=== PATIENT | female | born 1965 | race Caucasian/White ===

== ENCOUNTER 2016-12-01 17:03 | Inpatient (IN) | payer MEDICAID ==
[~2016-12-01] VITALS: Ht 165.1 cm; Wt 72.6 kg
[2016-12-01] MEDS ORDERED: ALBU8HFA IH (17:05)
[2016-12-01] MEDS ORDERED: IPRATROPIUM BROMIDE 0.5 MG/2.5 ML NEB SOLUTION NEB ONE ×3 (17:15→20:45)
[2016-12-01] MEDS ORDERED: ALBUTEROL SULFATE 5 MG/ML 20 ML NEB SOLN [BULK] NEB ONE ×3 (17:15→20:45)
[2016-12-01] MEDS ORDERED: 0.9% SODIUM CHLORIDE 15 ML NEB SOLUTION NEB ONE ×2 (17:19→20:47)
[2016-12-01] MEDS ORDERED: PredniSONE 20 MG TABLET PO ONE (17:30)
[2016-12-01] MEDS ORDERED: IBUPROFEN 600 MG TABLET PO ONE (20:45)
[2016-12-01] MEDS ORDERED: ACETAMINOPHEN 325 MG TABLET PO ONE (20:45)
[2016-12-01] MEDS ORDERED: ACETAMINOPHEN 325 MG TABLET PO PRN (21:30)
[2016-12-01] MEDS ORDERED: ONDANSETRON HCL 4 MG/2 ML VIAL IVP PRN (21:30)
[2016-12-01 21:41] LABS: BASOPHILS # (AUTO) 0.01 K/uL (0.00-0.20); BASOPHILS % (AUTO) 0.1 % (0.0-2.0); EOSINOPHILS # (AUTO) 0.01 K/uL (0.00-0.70); EOSINOPHILS % (AUTO) 0.05 % (1.0-6.0); HEMOGLOBIN 13.7 g/dL (12.0-16.0); LYMPHOCYTES # (AUTO) 1.1 K/uL (1.0-4.8); LYMPHOCYTES % (AUTO) 8.1 % (22.0-44.0); MEAN CORPUSCULAR HGB CONC 31.9 G/dL (31.0-37.0); MEAN CORPUSCULAR VOLUME 78 fL (80-100); MONOCYTES # (AUTO) 0.2 K/uL (0.1-1.0); MONOCYTES % (AUTO) 1.4 % (2.0-9.0); NEUTROPHILS # (AUTO) 12.5 K/uL (1.8-7.7); PLATELET COUNT (AUTO) 363 K/uL (150-450); RED CELL DISTRIBUTION WIDTH 14.6 % (11.5-14.5); WHITE BLOOD COUNT (AUTO) 13.8 K/uL (4.5-11.0)
[2016-12-01 21:54] LABS: NEUTROPHILS % (AUTO) 90.4 % (40.0-70.0)
[2016-12-01 21:55] LABS: ANION GAP 11 mmol/L (8-16); CALCIUM, TOTAL 8.8 mg/dL (8.8-10.5); CARBON DIOXIDE 26 mmol/L (22-29); CHLORIDE 104 mmol/L (98-107); CREATININE 0.66 mg/dL (0.60-1.30); GLOMERULAR FILTR. RATE CALC > 60 mL/min (>60); POTASSIUM 3.7 mmol/L (3.5-5.1); SODIUM SERUM 141 mmol/L (136-145); UREA NITROGEN, BLOOD 25 mg/dL (7-18)
[2016-12-01] MEDS ORDERED: MAGNESIUM HYDROXIDE SUSPENSION 30 ML UDCUP PO PRN (22:00)
[2016-12-01 22:04] LABS: ALANINE AMINOTRANSFERASE 33 U/L (12-78); ALBUMIN 3.3 g/dL (3.4-5.0); ASPARTATE AMINOTRANSFERASE 14 U/L (15-37); BILIRUBIN,TOTAL 0.2 mg/dL (0.1-1.0); TOTAL PROTEIN, SERUM 7.8 g/dL (6.4-8.2)
[2016-12-01 22:40] VITALS: BP 115/57
[2016-12-01] MEDS ORDERED: IPRATROPIUM BROMIDE 0.5 MG/2.5 ML NEB SOLUTION NEB SCH (23:00)
[2016-12-01] MEDS: ALBUTEROL SULFATE 2.5 MG/0.5 ML NEB SOLUTION NEB SCH (23:00)
[2016-12-01] MEDS ORDERED: 0.9% SODIUM CHLORIDE 5 ML NEB SOLUTION NEB ONE (23:51)
[2016-12-02] MEDS: ALBUTEROL SULFATE 2.5 MG/0.5 ML NEB SOLUTION NEB SCH ×2 (00:29→00:52)
[2016-12-02] MEDS ORDERED: SODIUM CHLORIDE 0.9% 500 ML IV ONE (00:36)
[2016-12-02] MEDS: MethylPREDNISolone SOD SUCC 40 MG/ML VIAL IVP SCH ×4 (00:47→17:02)
[2016-12-02] MEDS: HEPARIN SODIUM,PORCINE 5,000 UNITS/ML VIAL SQ SCH ×2 (00:47→08:00)
[2016-12-02] MEDS: AZITHROMYCIN 500 MG/NS 250 ML IV SCH (00:48)
[2016-12-02 05:12] VITALS: BP 106/60
[2016-12-02 08:16] VITALS: BP 116/74
[2016-12-02] MEDS: DOCUSATE SODIUM 100 MG CAPSULE PO SCH ×2 (08:51→20:20)
[2016-12-02] MEDS: PANTOPRAZOLE SODIUM 40 MG DR TABLET PO SCH (08:51)
[2016-12-02] MEDS: ACETAMINOPHEN 325 MG TABLET PO PRN ×2 (11:38→20:20)
[2016-12-02 11:44] VITALS: BP 104/57
[2016-12-02 15:46] VITALS: BP 136/76
[2016-12-02] MEDS: ALBUTEROL SULFATE 2.5 MG/0.5 ML NEB SOLUTION NEB PRN (19:50)
[2016-12-02] MEDS: IPRATROPIUM BROMIDE 0.5 MG/2.5 ML NEB SOLUTION NEB PRN (19:50)
[2016-12-02 20:19] VITALS: BP 124/73
[2016-12-03] VITALS (8 sets, daily range): BP systolic 93–132; BP diastolic 57–93
[2016-12-03] MEDS: MethylPREDNISolone SOD SUCC 40 MG/ML VIAL IVP SCH ×5 (00:03→23:47)
[2016-12-03 06:49] LABS: EOSINOPHILS % (AUTO) 0 % (1.0-6.0); HEMATOCRIT 39.8 % (36-46); HEMOGLOBIN 12.6 g/dL (12.0-16.0); LYMPHOCYTES # (AUTO) 1.2 K/uL (1.0-4.8); LYMPHOCYTES % (AUTO) 4.3 % (22.0-44.0); MEAN CORPUSCULAR HEMOGLOBIN 24.8 pg (26.0-34.0); MEAN CORPUSCULAR HGB CONC 31.8 G/dL (31.0-37.0); MEAN CORPUSCULAR VOLUME 78 fL (80-100); MONOCYTES # (AUTO) 0.4 K/uL (0.1-1.0); MONOCYTES % (AUTO) 1.6 % (2.0-9.0); NEUTROPHILS # (AUTO) 25.5 K/uL (1.8-7.7); PLATELET COUNT (AUTO) 394 K/uL (150-450); RED CELL DISTRIBUTION WIDTH 14.6 % (11.5-14.5); WHITE BLOOD COUNT (AUTO) 27.1 K/uL (4.5-11.0)
[2016-12-03 07:02] LABS: NEUTROPHILS % (AUTO) 94.1 % (40.0-70.0); RBC MORPHOLOGY COMMENT ABNORMAL RBC MORPH
[2016-12-03 07:14] LABS: ANION GAP 10 mmol/L (8-16); CALCIUM, TOTAL 8.7 mg/dL (8.8-10.5); CARBON DIOXIDE 25 mmol/L (22-29); CHLORIDE 106 mmol/L (98-107); CREATININE 0.56 mg/dL (0.60-1.30); GLOMERULAR FILTR. RATE CALC > 60 mL/min (>60); SODIUM SERUM 141 mmol/L (136-145); UREA NITROGEN, BLOOD 23 mg/dL (7-18)
[2016-12-03] MEDS: DOCUSATE SODIUM 100 MG CAPSULE PO SCH ×2 (08:32→20:54)
[2016-12-03] MEDS: PANTOPRAZOLE SODIUM 40 MG DR TABLET PO SCH (08:32)
[2016-12-03] MEDS: ACETAMINOPHEN 325 MG TABLET PO PRN ×2 (14:32→20:56)
[2016-12-03] MEDS ORDERED: 0.9% SODIUM CHLORIDE 10 ML SYRINGE IVP PRN (16:15)
[2016-12-03] MEDS: AZITHROMYCIN 500 MG/NS 250 ML IV SCH ×2 (23:48)
[2016-12-04 04:55] VITALS: BP 126/79
[2016-12-04] MEDS: MethylPREDNISolone SOD SUCC 40 MG/ML VIAL IVP SCH (06:29)
[2016-12-04] MEDS: ALBUTEROL SULFATE 2.5 MG/0.5 ML NEB SOLUTION NEB PRN ×4 (06:47→17:20)
[2016-12-04] MEDS: IPRATROPIUM BROMIDE 0.5 MG/2.5 ML NEB SOLUTION NEB PRN ×4 (06:47→17:20)
[2016-12-04 07:54] VITALS: BP 134/68
[2016-12-04] MEDS: DOCUSATE SODIUM 100 MG CAPSULE PO SCH ×2 (09:17→20:28)
[2016-12-04] MEDS: PredniSONE 20 MG TABLET PO SCH (09:18)
[2016-12-04] MEDS: PANTOPRAZOLE SODIUM 40 MG DR TABLET PO SCH (09:18)
[2016-12-04] MEDS: MONTELUKAST SODIUM 10 MG TABLET PO SCH (09:18)
[2016-12-04] MEDS: ACETAMINOPHEN 325 MG TABLET PO PRN ×3 (11:40→20:26)
[2016-12-04 12:29] VITALS: BP 117/78
[2016-12-04 15:44] VITALS: BP 136/71
[2016-12-04 20:03] VITALS: BP 115/67
[2016-12-04 23:15] VITALS: BP 115/63
[2016-12-04] MEDS: AZITHROMYCIN 500 MG/NS 250 ML IV SCH (23:27)
[2016-12-05 04:33] VITALS: BP 119/56
[2016-12-05 07:22] VITALS: BP 132/76
[2016-12-05] MEDS: ALBUTEROL SULFATE 2.5 MG/0.5 ML NEB SOLUTION NEB PRN ×2 (07:25→17:49)
[2016-12-05] MEDS: IPRATROPIUM BROMIDE 0.5 MG/2.5 ML NEB SOLUTION NEB PRN ×2 (07:25→17:49)
[2016-12-05] MEDS: MONTELUKAST SODIUM 10 MG TABLET PO SCH (08:16)
[2016-12-05] MEDS: PANTOPRAZOLE SODIUM 40 MG DR TABLET PO SCH (08:16)
[2016-12-05] MEDS: PredniSONE 20 MG TABLET PO SCH (08:17)
[2016-12-05] MEDS: DOCUSATE SODIUM 100 MG CAPSULE PO SCH ×2 (08:19→19:54)
[2016-12-05] MEDS: BENZONATATE 100 MG CAPSULE PO SCH ×2 (10:22→19:52)
[2016-12-05] MEDS: LORazepam 1 MG TABLET PO PRN ×2 (11:00→18:09)
[2016-12-05 12:09] VITALS: BP 128/50
[2016-12-05 15:25] VITALS: BP 123/66
[2016-12-05] MEDS: AZITHROMYCIN 500 MG/NS 250 ML IV SCH (23:34)
[2016-12-06 00:14] VITALS: BP 100/61
[2016-12-06 04:56] VITALS: BP 132/79
[2016-12-06] MEDS: PANTOPRAZOLE SODIUM 40 MG DR TABLET PO SCH (08:07)
[2016-12-06] MEDS: PredniSONE 20 MG TABLET PO SCH (08:07)
[2016-12-06] MEDS: MONTELUKAST SODIUM 10 MG TABLET PO SCH (08:07)
[2016-12-06] MEDS: DOCUSATE SODIUM 100 MG CAPSULE PO SCH (08:07)
[2016-12-06] MEDS: LORazepam 1 MG TABLET PO PRN (08:09)
[2016-12-06] MEDS: BENZONATATE 100 MG CAPSULE PO SCH (08:10)
[2016-12-06 08:11] VITALS: BP 115/69
[2016-12-06] MEDS ORDERED: ALBU8HFA IH (11:27)
[2016-12-06] MEDS ORDERED: MONT10TA21 PO (11:28)
[2016-12-06] MEDS ORDERED: ADV250 IH (11:28)
[2016-12-06] MEDS ORDERED: PRED10 PO (11:29)
[2016-12-06] MEDS ORDERED: LORA1TAB3 PO (11:38)
[2016-12-06 11:41] VITALS: BP 126/75
== END 2016-12-06 12:42 | disposition home or self-care (01) | DRG 141 ==
LOC: EMS 17:05 → 6N 21:32
PROVIDERS: ADMIT Internal Medicine; ATTEND Internal Medicine
DX: J45.901 Unspecified asthma with (acute) exacerbation (principal); F41.1 Generalized anxiety disorder; J20.9 Acute bronchitis, unspecified; Z79.51 Long term (current) use of inhaled steroids
CPT/HCPCS: 93005; 94640; 94644; 99285; J0456; J1644; J2920; J7040

== ENCOUNTER 2018-04-24 13:38 | Emergency (ER) | payer MEDICAID, OTHER ==
[~2018-04-24] VITALS: Ht 165.1 cm; Wt 72.7 kg
[~2018-04-24 13:38] MED LIST: ADV250 IH; ALBU8HFA IH; LORA1TAB3 PO; MONT10TA21 PO; PRED10 PO
[2018-04-24 14:45] VITALS: BP 122/78
[2018-04-24] MEDS ORDERED: ALBUTEROL SULFATE 2.5 MG/0.5 ML NEB SOLUTION NEB ONE (14:45)
[2018-04-24] MEDS ORDERED: IPRATROPIUM BROMIDE 0.5 MG/2.5 ML NEB SOLUTION NEB ONE (14:45)
[2018-04-24] MEDS ORDERED: 0.9% SODIUM CHLORIDE 5 ML NEB SOLUTION NEB ONE (14:55)
[2018-04-24 15:26] LABS: APPEARANCE,URINE CLOUDY (CLEAR); BILIRUBIN,URINE NEGATIVE (NEGATIVE); GLUCOSE, URINE (UA) NEGATIVE (NEGATIVE); KETONES,URINE NEGATIVE (NEGATIVE); LEUKOCYTE ESTERASE ,URINE NEGATIVE (NEGATIVE); NITRATE,URINE POSITIVE (NEGATIVE); OCCULT BLOOD,URINE MODERATE (NEGATIVE); PH,URINE 5.5 (5.0-8.0); PROTEIN,URINE NEGATIVE (NEGATIVE); UROBILINOGEN,URINE 0.2 mg/dL (<=1.0)
[2018-04-24 15:35] LABS: BACTERIA,URINE Many /HPF (None Seen)
[2018-04-24 15:36] LABS: SQUAMOUS EPITHELIAL CELL,UR Moderate /LPF (None Seen); WBC,URINE 0-2 /HPF (0-5)
== END 2018-04-24 15:59 | disposition home or self-care (01) ==
LOC: EMS 13:40
DX: J20.9 Acute bronchitis, unspecified (principal); J45.909 Unspecified asthma, uncomplicated; J02.9 Acute pharyngitis, unspecified; F17.210 Nicotine dependence, cigarettes, uncomplicated
CPT/HCPCS: 81001; 87077; 87086; 87186; 94640; 99284; J7613

== ENCOUNTER 2019-04-15 14:39 | Emergency (ER) | payer OTHER ==
[~2019-04-15] VITALS: Ht 165.1 cm; Wt 77.3 kg
[2019-04-15 17:45] VITALS: BP 120/70
== END 2019-04-15 18:30 | disposition left against medical advice (07) ==
LOC: EMS 14:43
DX: M79.605 Pain in left leg (principal); Z53.21 Procedure and treatment not carried out due to patient leaving prior to being seen by health care provider

== ENCOUNTER 2022-02-11 11:06 | Emergency (ER) | payer OTHER ==
[~2022-02-11] VITALS: Ht 165.1 cm; Wt 81.8 kg
[~2022-02-11 11:06] MED LIST changes: -ADV250 IH; +FLUT1DIS6 IH; +LORA-1000 PO; -LORA1TAB3 PO; -MONT10TA21 PO; -PRED10 PO
[2022-02-11 11:41] VITALS: BP 141/77
[2022-02-11] MEDS ORDERED: ALBUTEROL SULFATE 2.5 MG/0.5 ML NEB SOLUTION NEB ONE (11:45)
[2022-02-11] MEDS ORDERED: IPRATROPIUM BROMIDE 0.5 MG/2.5 ML NEB SOLUTION NEB ONE (11:45)
[2022-02-11] MEDS ORDERED: PredniSONE 20 MG TABLET PO ONE (11:45)
[2022-02-11 12:15] LABS: COVID AG,FIA SOURCE NASOPHARYNGEAL
[2022-02-11] MEDS ORDERED: PRED-554 PO ×2 (12:27→12:28)
[2022-02-11 12:42] LABS: INFLUENZA TYPE A NEGATIVE FOR TYPE A (NEGATIVE); INFLUENZA TYPE B NEGATIVE FOR TYPE B (NEGATIVE)
== END 2022-02-11 12:37 | disposition home or self-care (01) ==
LOC: EMS 11:06
DX: U07.1 COVID-19 (principal); J45.909 Unspecified asthma, uncomplicated; Z98.890 Other specified postprocedural states
CPT/HCPCS: 99284; 87426; 87804; 94640; 93005; J7512; C9803